=== PATIENT | female | born 1955 | race Caucasian/White ===

== ENCOUNTER 2023-09-11 10:51 | Day surgery (SDC) | payer OTHER ==
[2023-09-06 09:53] VITALS: BMI 21.6
[2023-09-11 11:15] VITALS: RESP 18
[2023-09-11] MEDS ORDERED: LIDOCAINE 1% P/F 10 MG/ML VIAL ONE (11:16)
[2023-09-11] MEDS ORDERED: NEO/POLYMYX B SULF/DEXAMETH OPHTHALMIC 5ML BOTTLE ONE (11:17)
[2023-09-11] MEDS ORDERED: TETRACAINE 0.5% OPHTH SOLN 2 ML BOTTLE ONE (11:17)
[2023-09-11] MEDS ORDERED: CARBACHOL 0.01% INTRA-OCULAR 1.5 ML VIAL ONE (11:17)
[2023-09-11] MEDS ORDERED: BSS (NA/CA/MG/K) BALANCED SALT SOLUTION OPHTH SOLN 15 ML BOTTLE ONE (11:17)
[2023-09-11] MEDS: CYCLOPENTOLATE 2% OPHTH SOLN 2 ML BOTTLE ONE (11:25)
[2023-09-11] MEDS: PHENYLEPHRINE 2.5% OPTHALMIC DROP 2ML BOTTLE ONE (11:25)
[2023-09-11] MEDS: CIPROFLOXACIN 0.3% EYE DROPS 5 ML BOTTLE ONE (11:25)
[2023-09-11] MEDS: TROPICAMIDE 1% OPHTH SOLN 15 ML BOTTLE ONE (11:25)
[2023-09-11] MEDS ORDERED: MIDAZOLAM HCL 2 MG/2 ML SINGLE DOSE VIAL ONE (12:08)
[2023-09-11 15:19] VITALS: TEMP 97.7
[2023-09-11 15:20] VITALS: BP 121/66; PULSE 65
== END 2023-09-11 13:10 | disposition home or self-care (01) ==
LOC: FASU 10:51
PROVIDERS: ATTEND Ophthalmology
PROC: BR2DZZZ Computerized Tomography (CT Scan) of Sacroiliac Joints (ICD-10-PCS; principal; 2023-09-11 12:12)
DX: H26.8 Other specified cataract (principal)
CPT/HCPCS: 66984; V2632

== ENCOUNTER 2023-11-20 09:05 | Day surgery (SDC) | payer OTHER ==
[2023-11-14 12:15] VITALS: BMI 21.6
[2023-11-20] MEDS ORDERED: EPINEPHrine/PF 1 MG/1 ML (1:1,000) AMPULE ONE (09:12)
[2023-11-20] MEDS ORDERED: BSS (NA/CA/MG/K) BALANCED SALT SOLUTION OPHTH SOLN 15 ML BOTTLE ONE (09:13)
[2023-11-20] MEDS ORDERED: LIDOCAINE 1% P/F 10 MG/ML VIAL ONE (09:13)
[2023-11-20] MEDS ORDERED: TETRACAINE 0.5% OPHTH SOLN 2 ML BOTTLE ONE (09:13)
[2023-11-20] MEDS ORDERED: CARBACHOL 0.01% INTRA-OCULAR 1.5 ML VIAL ONE (09:14)
[2023-11-20] MEDS ORDERED: NEO/POLYMYX B SULF/DEXAMETH OPHTHALMIC 5ML BOTTLE ONE (09:14)
[2023-11-20] MEDS ORDERED: MIDAZOLAM HCL 2 MG/2 ML SINGLE DOSE VIAL ONE (09:15)
[2023-11-20] MEDS: TROPICAMIDE 1% OPHTH SOLN 15 ML BOTTLE ONE (09:30)
[2023-11-20] MEDS: CIPROFLOXACIN 0.3% EYE DROPS 5 ML BOTTLE ONE (09:30)
[2023-11-20] MEDS: PHENYLEPHRINE 2.5% OPTHALMIC DROP 2ML BOTTLE ONE (09:30)
[2023-11-20] MEDS: CYCLOPENTOLATE 2% OPHTH SOLN 2 ML BOTTLE ONE (09:30)
[2023-11-20 12:01] VITALS: BP 156/95; PULSE 67; RESP 18; TEMP 97.8
== END 2023-11-20 11:02 | disposition home or self-care (01) ==
LOC: FASU 09:05
PROVIDERS: ATTEND Ophthalmology
PROC: 08RK3JZ Replacement of Left Lens with Synthetic Substitute, Percutaneous Approach (ICD-10-PCS; principal; 2023-11-20 10:01)
DX: H26.8 Other specified cataract (principal)
CPT/HCPCS: 66984; V2632